=== PATIENT | female | born 1945 | race Caucasian/White ===

== ENCOUNTER 2018-09-06 14:17 | Emergency (ER) | payer MEDICARE, BC, SELFPAY ==
[2018-09-06 14:23] VITALS: BP 181/67; PULSE 92; RESP 18; TEMP 36.9; O2SAT 96
--- NOTE | 2018-09-06 14:51 | DI.CT_ITS ---
SYMPTOM/DIAGNOSIS: FELL, HIT FACE NONCONTRAST HEAD CT: There is a large soft tissue hematoma at the left orbital rim. No underlying skull fracture is seen. The globes appear intact. There is no intracranial hemorrhage, mas or infarct. There are mild patchy areas of low attenuation in the white matter consistent with microvascular disease. IMPRESSION: Soft tissue swelling above the left orbit. No acute abnormality. FACIAL CT: A large area of siomara-orbital soft tissue swelling is again noted. The globes appear intact. There is no evidence of fracture. The sinuses are clear. IMPRESSION: Siomara-orbital soft tissue swelling. No evidence of fracture. CERVICAL SPINE CT: There is no evidence of fracture. Degenerative changes are seen. There is no paraspinal hematoma. The airway appears intact. IMPRESSION: Degenerative changes. No acute abnormality.
[2018-09-06] MEDS: Ibuprofen 800 MG TAB (15:12)
--- NOTE | 2018-09-06 15:59 | ED.GENADUL_ITS ---
Discharge Plan Disposition Patient Disposition: HOME Condition: Good Discharge Details Chief Complaint: Laceration Clinical Impression: Contusion, Abrasion Primary Care Provider: DORIAN CALDERON ED Provider: Fuad Frazier Home Meds and New Rx's Prescriptions: No Action albuterol sulfate 2.5 MG/3 ML solution for nebulization 1 puff Inhalation .Q6 HRS PRNRF: 0 acetaminophen-codeine 1 EACH tablet 1 tab PO PRN PRNRF: 0 acyclovir 400 MG tablet 1 tab PO PRN PRNRF: 0 methocarbamol 750 MG tablet 750 mg PO HS PRNRF: 0 esomeprazole magnesium [Nexium] 40 MG capsule,delayed release(DR/EC) 40 mg PO BID RF: 0 Flovent HFA 120 PUFF HFA aerosol inhaler 4 puff Inhalation BID RF: 0 lorazepam 1 MG tablet 1 mg PO PRN PRNRF: 0 losartan 100 MG tablet 100 mg PO DAILY RF: 0 Flovent HFA 12 GM HFA aerosol inhaler 2 spray NS .QDAY RF: 0 Serevent Diskus 1 EACH blister with device 1 puff Inhalation BID RF: 0 chlorthalidone 25 MG tablet 25 mg PO DAILY RF: 0 albuterol sulfate [Proventil HFA] 90 mcg/actuation Hfa Aerosol Inhaler 2 puff Inhalation PRN PRNRF: 0 ipratropium-albuterol 3 ML solution for nebulization 3 ml Inhalation Q6H PRNQty: 1 RF: 0 Discharge Instructions Instructions: Contusion in Adults (ED), Abrasion (ED) Additional Instructions: Please clean and dress the wounds as we showed you. Please take Tylenol as needed for pain if you notice any worsening of your symptoms, or any new symptoms such as vomiting, diarrhea, fever, chills, shortness of breath, chest pain, numbness, weakness, or fainting , please return immediately to the emergency department for reevaluation. Please follow up with your primary care provider as soon as possible for reassessment and reevaluation. As always, it was a pleasure participating in your medical care today. Referrals: DORIAN CALDERON [Primary Care Provider] - Medical Decision Making This is a pleasant 73-year-old female with past medical history of asthma who presents today for evaluation after a fall. She had a mechanical trip and landed on the left side of her face. Physical exam demonstrates no neurologic deficits, notable contusion and hematoma over the left brow, as well as bruising and contusion over the nasal bridge. She has a small superficial s kin abrasion over the left hand as well. No signs of any laceration requiring suture. No evidence of hyphema, ocular entrapment, change in vision, or other concerning intra-or extracranial red flag. Because of the patient's age and mechanism we did get a CT scan of the head neck and face. Patient's tetanus has been updated. Patient is not on any blood thinners. The areas of concern were cleaned and scrubbed vigorously, all gravel was removed. Patient shows no neurologic deficits and is doing very well at this time. Pain is well controlled. We have instructed her on means of regular wound cleansing and bandage changing for her abrasions. We are currently awaiting CT scan results. If these are negative for any acute fracture I do feel that she be safely discharged home with close follow-up. 4:[address] scan results have returned negative for any acute process or fracture. Tetanus is been updated. Patient will be discharged home with close follow-up. Discussed red flags which return. I have extensively reviewed the treatment plan and discharge instructions with the patient. I have addressed all patient concerns at this time. The patient was made aware of what symptoms to monitor for that would warrant a return to the emergency department. Discussed the plan with the patient, they demonstrate verbal understanding and agreement with our assessment and plan at this time. FINDINGS: Degenerative disc and facet disease most pronounced in the lower cervical spine. No focal subluxation. No acute fracture. Paraspinous soft tissues unremarkable for age. Lung apices within normal limits. IMPRESSION: No evidence of acute bony injury. Dictated and Authenticated by: Demetris Helms MD. FINDINGS: No evidence of acute facial bone fracture. Left siomara-orbital soft tissue swelling. Left globe appears intact. Paranasal sinuses unremarkable. Incidental periodontal disease of the right anterolateral maxilla. IMPRESSION: No evidence of acute bony injury. FINDINGS: No evidence of hemorrhage. No mass effect. No acute intracranial abnormality. Prominent left frontal and periorbital scalp hematoma. No evidence of acute fracture. IMPRESSION: No evidence of acute intracranial process. HPI General Date/Time Provider Initiated Documentation: 09/06/18 14:18 . HPI Narrative: This is a 73-year-old female with a past medical history of asthma and hypertension who presents today for evaluation of a fall. 30 minutes prior to arrival the patient had a mechanical trip no walking into her right a, and fell and hit the left side of her face onto the ground she had no loss of consciousness, did have immediate bleeding, is able to get up independently on her own. She recalls the entire event aside from mild pain over her left brow denies any other significant pain. She denies any vision changes, headache, neck pain, chest pain or shortness of breath. She denies any history of seizure or syncope. She has no other complaints at this time. She is not on any blood thinners. No other modifying factors. Related Data Home Medications Medication Instructions Recorded Confirmed Flovent HFA 2 spray NS .QDAY 10/23/15 09/06/18 acetaminophen-codeine 1 tab PO PRN PRN 10/23/15 09/06/18 acyclovir 1 tab PO PRN PRN 10/23/15 09/06/18 albuterol sulfate 1 puff INHALATION .Q6 HRS PRN 10/23/15 09/06/18 esomeprazole magnesium [Nexium] 40 mg PO BID 10/23/15 09/06/18 fluticasone [Flovent 220MCG] 4 puff INHALATION BID 10/23/15 09/06/18 lorazepam 1 mg PO PRN PRN 10/23/15 09/06/18 losartan 100 mg PO DAILY 10/23/15 09/06/18 methocarbamol 750 mg PO HS PRN 10/23/15 09/06/18 salmeterol [Serevent Diskus] 1 puff INHALATION BID 10/24/15 09/06/18 chlorthalidone 25 mg PO DAILY 02/13/16 09/06/18 ipratropium-albuterol 3 ml INHALATION Q6H PRN #1 pkg 10/19/17 09/06/18 albuterol sulfate [Proventil HFA] 2 puff INHALATION PRN PRN 09/06/18 09/06/18 Previous Rx's Medication Instructions Recorded ipratropium-albuterol 3 ml INHALATION Q6H PRN #1 pkg 10/19/17 Allergies Allergy/AdvReac Type Severity Reaction Status Date / Time diltiazem Allergy Intermediate Unverified 09/06/18 14:26 lisinopril Allergy Mild Unverified 09/06/18 14:26 NSAIDS (Non-Steroidal AdvReac Mild Unverified 09/06/18 14:26 Anti-Inflamma General Stated Complaint: Laceration SALAS: 3 Review of Systems Review of Systems All systems reviewed & are unremarkable except as noted in HPI and below PFSH Social History Smoking and Tabacco status: Never Exam Narrative Exam Narrative: 1.Const: Well-nourished, Well-developed, appearing stated age 2.Eyes: PERRL, no conjunctival injection, and symmetrical lids. 3.ENT: Atraumatic external nose and ears. Moist MM. Neck: Symmetric, trachea midline, No thyromegaly. There is no evidence of raccoon eyes, avila sign, CSF rhinorrhea, mastoid tenderness, cranial crepitus, hemotympanum, exophthalmos, or hyphema. Patient demonstrates intact dentition with no signs of tooth avulsion or fracture, no signs of jaw deformity, no evidence of a LeFort's fracture, with an intact palate, nose and orbital region. There is no evidence of a nasal septal hematoma. No proptosis. Jaw closes symmetrically. Airway is clear. 4.CVS: +S1/S2, No murmurs or gallops. Peripheral pulses 2+ and equal in all extremities. Brisk capillary refill in all extremities. 5.RESP: Unlabored respiratory effort. Clear to auscultation bilaterally. No wheezes rales or rhonchi 6.GI: Soft, Nontender/Nondistended, No hepatosplenomegaly. No guarding or rebound. 7.MSK: Normocephalic/Atraumatic, Extremities w/o deformity or ttp No cyanosis or clubbing, Normal movement of all extremities no midline cervical or thoracic neck pain. Normal range of motion for the neck. No evidence of trauma. 8.Skin: Warm, Dry. Notable bruising and contusion over the left eyebrow, notable swelling in this area. Mild superficial abrasion is present here and on the bridge of the nose. Mild scrape/abrasion over the left hand. No signs of active bleeding. No evidence of retained gravel. No signs of active bleeding or deep laceration requiring suture. 9.Neuro: admitted attorneys II-XII grossly intact. Sensation grossly intact, no focal neurol ogic deficits. 10.Psych: (AAO) x3. Appropriate mood and affect Course Vital Signs Temperature 36.9 C 09/06/18 14:23 Pulse 92 H 09/06/18 14:23 Respiratory Rate 18 09/06/18 14:23 Blood Pressure 181/67 H 09/06/18 14:23 Pulse Oximetry 96 09/06/18 14:23 Temperature 36.9 C 09/06/18 14:23 Pulse 92 H 09/06/18 14:23 Respiratory Rate 18 09/06/18 14:23 Respiratory Effort 09/06/18 14:30 Blood Pressure 181/67 H 09/06/18 14:23 Pulse Oximetry 96 09/06/18 14:23 Pain Level 5 09/06/18 15:12
--- NOTE | 2018-09-06 16:30 | DI.VRAD_ITS ---
EXAM: CT Head Without Contrast EXAM DATE/TIME: 09/06/2018 3:32 PM CLINICAL HISTORY: 73 years old, female; Injury or trauma; Fall; Initial encounter; Blunt trauma (contusions or hematomas); Cheek bone and eyelid and head/scalp; Loss of consciousness; Left; Upper left TECHNIQUE: Axial computed tomography images of the head/brain without contrast. Coronal and sagittal reformatted images were created and reviewed. COMPARISON: No relevant prior studies available. FINDINGS: No evidence of hemorrhage. No mass effect. No acute intracranial abnormality. Prominent left frontal and periorbital scalp hematoma. No evidence of acute fracture. IMPRESSION: No evidence of acute intracranial process. EXAM: CT Maxillofacial Without Contrast EXAM DATE/TIME: 09/06/2018 3:32 PM CLINICAL HISTORY: 73 years old, female; Injury or trauma; Fall; Initial encounter; Blunt trauma (contusions or hematomas); Cheek bone and eyelid and head/scalp; Loss of consciousness; Left; Upper left TECHNIQUE: Axial computed tomography images of the face without intravenous contrast. Coronal and sagittal reformatted images were created and reviewed. COMPARISON: No relevant prior studies available. FINDINGS: No evidence of acute facial bone fracture. Left siomara-orbital soft tissue swelling. Left globe appears intact. Paranasal sinuses unremarkable. Incidental periodontal disease of the right anterolateral maxilla. IMPRESSION: No evidence of acute bony injury. EXAM: CT Cervical Spine Without Contrast EXAM DATE/TIME: 09/06/2018 3:32 PM CLINICAL HISTORY: 73 years old, female; Injury or trauma; Fall; Initial encounter; Blunt trauma (contusions or hematomas); Cheek bone and eyelid and head/scalp; Loss of consciousness; Left; Upper left TECHNIQUE: Axial computed tomography images of the cervical spine without intravenous contrast. Coronal and sagittal reformatted images were created and reviewed. COMPARISON: No relevant prior studies available. FINDINGS: Degenerative disc and facet disease most pronounced in the lower cervical spine. No focal subluxation. No acute fracture. Paraspinous soft tissues unremarkable for age. Lung apices within normal limits. IMPRESSION: No evidence of acute bony injury. Dictated and Authenticated by: Demetris Helms MD. Ordering:TACOS Merida MD
== END 2018-09-06 17:06 | disposition home or self-care (01) ==
LOC: ER 17:05
PROVIDERS: Emergency Provider Student in an Organized Health Care Education/Training Program; PCP Nurse Practitioner Family
DX: S00.12XA Contusion of left eyelid and periocular area, initial encounter (principal); S00.33XA Contusion of nose, initial encounter; S60.512A Abrasion of left hand, initial encounter; W18.30XA Fall on same level, unspecified, initial encounter; I10 Essential (primary) hypertension
CPT/HCPCS: 90471; 99284; 70450; 70486; 72125

== ENCOUNTER 2019-01-12 18:47 | Outpatient (REF) | payer MEDICARE, BC, SELFPAY ==
[2019-01-12 21:17] LABS: HCT 38.1 % (36.0-46.0); HGB 12.5 g/dL (12.0-15.5); Mean Corp. HGB Concentration 32.8 g/dL (32.0-36.0); Mean Corpuscular Hemoglobin 29.6 pg (27.0-33.0); Mean Corpuscular Volume 90.1 fL (80-95); Mean Platelet Volume 12.2 fL (8.0-11.0); Platelet Count 255 x1000/uL (130-400); RBC 4.23 m/cumm (4.00-5.20); RBC Distribution Width 14.9 % (11.7-14.6); White Blood Cell Count 9.22 k/cumm (4.4-10.8)
[2019-01-12 22:09] LABS: Anion Gap 9.9 mmol/L (3-11); BUN 33 mg/dL (7-18); CO2 26.1 mmol/L (21.0-32.0); CREATININE 0.73 mg/dL (0.55-1.02); Calcium 9.6 mg/dL (8.5-10.1); Chloride 103 mmol/L (98-107); Glucose 104 mg/dL (70-100); Potassium 3.5 mmol/L (3.5-5.1); Sodium 139 mmol/L (136-145)
[2019-01-12 23:17] LABS: COMMENT (LAB VIEW ONLY) 133.45 mg/dL; Microalb ug/mg Crea 7.9 ug/mg Cr
== END 2019-01-12 19:07 ==
LOC: NCHCN 18:47
PROVIDERS: PCP Nurse Practitioner Family; Visit Provider Nurse Practitioner Family
DX: E11.9 Type 2 diabetes mellitus without complications (principal); I10 Essential (primary) hypertension; D64.9 Anemia, unspecified
CPT/HCPCS: 80048; 85027; 82043; 82570

== ENCOUNTER 2020-04-25 10:01 | Outpatient (REF) | payer MEDICARE, BC, SELFPAY ==
[2020-04-25 22:12] LABS: COMMENT (LAB VIEW ONLY) 48.67 mg/dL; Microalb ug/mg Crea 11.9 ug/mg Cr
== END 2020-04-25 10:21 ==
LOC: NCHCN 10:01
PROVIDERS: PCP Nurse Practitioner Family; Visit Provider Nurse Practitioner Family
DX: E11.9 Type 2 diabetes mellitus without complications (principal); I10 Essential (primary) hypertension; G89.4 Chronic pain syndrome
CPT/HCPCS: 82043; 82570

== ENCOUNTER 2021-01-08 21:08 | Outpatient (REF) | payer MEDICARE, BC, SELFPAY ==
[2021-01-08 21:45] LABS: Abs Immature Grans 0.05 10^3/uL (0.0-0.06); Absolute Basophil Count 0.06 10^3/uL (0.0-0.2); Absolute Eosinophil Count 0.14 10^3/uL (0.0-0.7); Absolute Lymphocyte Count 2.17 10^3/uL (1.2-3.4); Basophils % 0.5; Eosinophils % 1.3; HCT 40.6 % (36.0-46.0); HGB 13.1 g/dL (11.2-15.7); Immature Grans % 0.4; Lymphocytes % 19.5; MCH 29.4 pg (27.0-33.0); MCHC 32.3 % (32.0-36.0); MCV 91.2 fL (80-95); MPV 13.2 fL (8.0-11.0); Monocytes % 12.6; Neutrophils % 65.7; Nucleated RBC 0 %; RBC 4.45 10^6/uL (3.93-5.22); RDW 14.6 % (11.7-14.6); RDW-SD 48.7 fL; WBC 11.12 10^3/uL (4.4-10.8)
[2021-01-08 21:51] LABS: Bacteria Few HPF (Negative); Epithelial Cells Few HPF (Negative); RBC 0-2 HPF (0-2)
[2021-01-08 21:52] LABS: C & S Indicated? Yes; Casts Negative LPF (Negative); Crystals Negative HPF (Negative); Mucus Negative (Negative)
[2021-01-08 22:00] LABS: Absolute Neutrophil Count 7.31 10^3/uL (1.2-6.7)
[2021-01-09 04:39] LABS: ALT 33 U/L (14-59); AST 30 U/L (15-37); Albumin 3.4 g/dL (3.4-5.0); Alkaline Phosphatase 92 U/L (46-116); BUN 30 mg/dL (7-18); Bilirubin, Total 0.6 mg/dL (0.2-1.0); CREATININE 1.8 mg/dL (0.55-1.02); Calcium 9.3 mg/dL (8.5-10.1); Chloride 99 mmol/L (98-107); Glucose 129 mg/dL (74-106); Potassium 3.1 mmol/L (3.5-5.1); Sodium 138 mmol/L (136-145); Total Protein 7.5 g/dL (6.4-8.2)
== END 2021-01-08 21:09 | disposition home or self-care (01) ==
LOC: LBN 21:08
PROVIDERS: PCP Nurse Practitioner Family; Visit Provider Nurse Practitioner Family
DX: R11.2 Nausea with vomiting, unspecified (principal)
CPT/HCPCS: 80053; 81015; 85025; 87086

== ENCOUNTER 2021-01-12 08:25 | Emergency (ER) | payer MEDICARE, BC, SELFPAY ==
[2021-01-12] VITALS (28 sets, daily range): BP systolic 159–243; BP diastolic 82–134; PULSE 75–98; RESP 11–24; TEMP 36.4; O2SAT 94–100
--- NOTE | 2021-01-12 08:30 | RT.EKG_ITS ---
APPROVED REPORT Exam: Resting ECG Reason for Exam: nausea Patient Location: E HR:87 bpm ECG Measurements Heart Rate 87 AXIS OH 192 P 23 QRSd 123 QRS -40 QT 372 T 84 QTc 448 Conclusion Sinus rhythm...normal P axis, V-rate 60- 99 Left bundle branch block...QRSd>120, broad/notched R
--- NOTE | 2021-01-12 08:45 | DI.CT_ITS ---
Exam(s) CT ABDOMEN PELVIS W EXAM: CT ABDOMEN PELVIS W CLINICAL HISTORY: LLQ pain with radiation to back. TECHNIQUE: Imaging Protocol: Axial computed tomography images with coronal and sagittal reformatted images were created and reviewed CONTRAST MATERIAL: Intravenous: Omnipaque 350 Contrast volume:100 cc Oral: no COMPARISON: CT ABD PELVIS WITH CONTRAST from 11/20/2011 FINDINGS: ABDOMEN: Lung Bases: Minimal atelectasis or scarring at the lung bases. Moderate-sized hiatal hernia. Liver: Normal density. Stable area of nodularity seen adjacent to the posterior border of the liver a t the level of the right kidney. Gallbladder and biliary tract: No radiodense calculus or dilation. Pancreas: Normal density, no abnormal calcifications or inflammatory process. Spleen: Small. Kidneys: Normal size, contour and axis. No radiodense stones or obstructive uropathy. No masses seen. Adrenal glands: No masses seen. Abdominal Aorta: Abdominal portion non-dilated. Atherosclerotic changes. PELVIS: Bladder: Symmetric distention, no gross wall thickening. Bowel: No obstruction or bowel wall thickening. Mild diverticulosis. No evidence of diverticulitis. Status post appendectomy. High-density material in descending and rectosigmoid colon. Peritoneal cavity: No ascites, collection or mesenteric inflammatory response. Bones: Severe degenerative changes. Scoliosis. Jose Elias proximal right femur. Reproductive organs: Within normal limits. Lymph nodes: Unremarkable. Impression: Diverticulosis without evidence of diverticulitis. Hiatal hernia. No acute abnormality. RADIATION DOSE DELIVERED: 1,336.78mGy.cm Total DLP DATA REPOSITORY: All CT scans at this facility are submitted to the National Radiology Data Registry (NRDR) Dose Index Registry (DIR) with the [employer] ([employer]). RADIATION OPTIMIZATION: All CT scans at this facility use at least one of these dose optimization te chniques: automated exposure control; mA and/or kV adjustment per patient size (includes targeted exa ms where dose is matched to clinical indication); or iterative reconstruction.
--- NOTE | 2021-01-12 08:51 | ED.GENADUL_ITS ---
Discharge Plan Disposition Patient Disposition: HOME Condition: Stable Discharge Details Clinical Impression: Abdominal pain, Nausea & vomiting, Hypokalemia, Hypomagnesemia Primary Care Provider: Laura Vasquez ED Provider: Tasha Ma Home Meds and New Rx's Prescriptions: New magnesium gluconate 27.5 mg magne- sium (500 mg) tablet 27.5 mg PO BID Qty: 10 RF: 0 ciprofloxacin HCl [Cipro] 500 mg tablet 500 mg PO BID Qty: 20 RF: 0 metronidazole [Flagyl] 500 mg tablet 500 mg PO TID Qty: 30 RF: 0 metoclopramide HCl [Reglan] 10 mg tablet 10 mg PO Q6H PRNQty: 10 RF: 0 Continued methocarbamol 750 MG tablet 750 mg PO HS PRNRF: 0 losartan 100 MG tablet 100 mg PO DAILY RF: 0 Serevent Diskus 1 EACH blister with device 1 puff Inhalation BID RF: 0 chlorthalidone 25 MG tablet 25 mg PO DAILY RF: 0 albuterol sulfate [Proventil HFA] 90 mcg/actuation Hfa Aerosol Inhaler 3 puff Inhalation Q4H PRNRF: 0 ipratropium-albuterol 3 ML solution for nebulization 3 ml Inhalation Q6H PRNQty: 1 RF: 0 No Action tramadol 50 mg tablet 50 - 100 mg PO TID RF: 0 esomeprazole magnesium [Nexium] 40 mg capsule,delayed release(DR/EC) 40 mg PO BID RF: 0 montelukast 10 mg tablet 10 mg PO DAILY RF: 0 codeine-guaifenesin [Guaiatussin AC] 10-100 mg/5 mL Liquid 5 - 10 ml PO HS PRNRF: 0 Flovent HFA 220 mcg/actuation HFA aerosol inhaler 4 inh INHALATION BID RF: 0 lorazepam 1 mg tablet 1 mg PO BID PRNRF: 0 hydrocodone-chlorpheniramine [Tussionex Pennkinetic ER] 10-8 mg/5 mL Suspension,Extended Rel 12 Hr 5 ml PO HS PRNRF: 0 ondansetron 4 mg tablet,disintegrating 4 mg PO Q6H PRNRF: 0 fluticasone propionate 50 mcg/actuation [place],Suspension 2 spray INTRANASAL DAILY RF: 0 diclofenac sodium [Voltaren Arthritis Pain] 1 % Gel 1 applic TOPICAL BID RF: 0 Hiberix (PF) 10 mcg/0.5 mL Recon Soln See Rx Instructions .ROUTE .COMPLEX RF: 0 guaifenesin 600 mg Tablet Extended Release 12hr 600 mg PO BID PRNRF: 0 potassium chloride 20 mEq Tablet Extended Release 20 meq PO DAILY RF: 0 Narcan 4 mg/actuation [place],Non-Aerosol 1 spray INTRANASAL PRN PRNRF: 0 Discharge Instructions Instructions: Hypokalemia (ED), Acute Nausea and Vomiting (ED), Abdominal Pain (ED), Hypomagnesemia (ED) Additional Instructions: Please follow-up with your primary care physician Please take your potassium daily as prescribed Take your Reglan as needed for nausea and vomiting Take the metronidazole and ciprofloxacin for suspected diverticulitis Recheck with your primary care physician in 48 to 72 hours Return earlier if you are unable to tolerate p.o., if you cannot tolerate your oral potassium or your antibiotics, you must return to the emergency room for possible admission as you have a low potassium and this can be very dangerous Please return immediately with persistent vomiting worsening pain, fever, chills, or with any new or progressing symptoms Discharge Data Discharge Date/Time-TO BE ENTERED AT DEPARTURE: 01/12/21 12:37 Medical Decision Making I did consider diverticulitis and even though CT read per radiologist is negative for acute pathology after my review, given her clinical presentation I initiated Cipro and Flagyl Urinalysis did not show evidence of infectious etiology of symptoms, no evidence of diabetic ketoacidosis Patient does have electrolyte abnormality, hypokalemia, 2.7 without EKG changes consistent with this Hypomagnesemia, 1.6 Received 1 g of IV magnesium, received 20 mEq of IV potassium and 40 mEq of p.o. potassium, patient was able to tolerate p.o., I attempted on numerous episodes throughout this encounter and patient did well I feel confident she will be able to take her prescribed medications at home and we did discuss admission which patient has adamantly declined She is alert, oriented, of decisional capacity, she is feeling symptomatic improvement after IV fentanyl 50 mcg and IV Tylenol CT results were discussed with patient and she expressed understanding She is aware that should she develop persistent nausea that is uncontrolled with her oral medication prescribed, she must return to the emergency room given her electrolyte status Should she develop fever or chills she does states she will return immediately She is ambulatory with steady gait, she will be discharged home via friend as she has received IV fentanyl in the emergency room There is no evidence of surgical pathology on CT scan reviewed by me and radiologist Given low threshold to return should she develop new or worsening complaints I did consider colitis with patient is not having diarrhea therefore I did not obtain stool specimen Recheck in 24 to 48 hours with primary care physician recommended Of note, this patient has not vomited throughout the entirety of this evaluation Medical Records Medical records reviewed: Yes I reviewed the patient's medical records. Lab Data Lab results reviewed: Yes I reviewed the patient's lab results. HPI General Mode of arrival: ambulatory . Date/Time Provider Initiated Documentation: 01/12/21 08:29 . Limitations to Documentation: no limitations . Information obtained by: patient . HPI Narrative: This 75-year-old female with a past medical history of hypertension peripheral edema presents with report of left lower quadrant abdominal pain with radiation to her flank with nausea, vomiting. She denies any fever. She had the pain been constant for the past week. She denies known exacerbating or alleviating factors. Related Data Home Medications Medication Instructions Recorded Confirmed losartan 100 mg PO DAILY 10/23/15 01/12/21 methocarbamol 750 mg PO HS PRN 10/23/15 01/12/21 Serevent Diskus 1 puff INHALATION BID 10/24/15 01/12/21 chlorthalidone 25 mg PO DAILY 02/13/16 01/12/21 ipratropium-albuterol 3 ml INHALATION Q6H PRN #1 pkg 10/19/17 01/12/21 albuterol sulfate [Proventil HFA] 3 puff INHALATION Q4H PRN 09/06/18 01/12/21 ciprofloxacin HCl [Cipro] 500 mg PO BID #20 tab 01/12/21 codeine-guaifenesin [Guaiatussin 5 - 10 ml PO HS PRN 01/12/21 01/12/21 AC] diclofenac sodium [Voltaren 1 applic TOPICAL BID 01/12/21 01/12/21 Arthritis Pain] esomeprazole magnesium [Nexium] 40 mg PO BID 01/12/21 01/12/21 fluticasone propionate 2 spray INTRANASAL DAILY 01/12/21 01/12/21 fluticasone propionate [Flovent 4 inh INHALATION BID 01/12/21 01/12/21 HFA] guaifenesin 600 mg PO BID PRN 01/12/21 01/12/21 haemoph b poly conj-tet tox-PF See Rx Instructions .ROUTE .COMPLEX 01/12/21 01/12/21 [Hiberix (PF)] hydrocodone-chlorpheniramine 5 ml PO HS PRN 01/12/21 01/12/21 [Tussionex Pennkinetic ER] lorazepam 1 mg PO BID PRN 01/12/21 01/12/21 magnesium gluconate 27.5 mg PO BID #10 tab 01/12/21 metoclopramide HCl [Reglan] 10 mg PO Q6H PRN #10 tab 01/12/21 metronidazole [Flagyl] 500 mg PO TID #30 tab 01/12/21 montelukast 10 mg PO DAILY 01/12/21 01/12/21 naloxone [Narcan] 1 spray INTRANASAL PRN PRN 01/12/21 01/12/21 ondansetron 4 mg PO Q6H PRN 01/12/21 01/12/21 potassium chloride 20 meq PO DAILY 01/12/21 01/12/21 tramadol 50 - 100 mg PO TID 01/12/21 01/12/21 Previous Rx's Medication Instructions Recorded ipratropium-albuterol 3 ml INHALATION Q6H PRN #1 pkg 10/19/17 ciprofloxacin HCl [Cipro] 500 mg PO BID #20 tab 01/12/21 magnesium gluconate 27.5 mg PO BID #10 tab 01/12/21 metoclopramide HCl [Reglan] 10 mg PO Q6H PRN #10 tab 01/12/21 metronidazole [Flagyl] 500 mg PO TID #30 tab 01/12/21 Allergies Allergy/AdvReac Type Severity Reaction Status Date / Time diltiazem Allergy Intermediate Unverified 01/12/21 08:34 lisinopril Allergy Mild Unverified 01/12/21 08:34 NSAIDS (Non-Steroidal AdvReac Mild Unverified 01/12/21 08:34 Anti-Inflamma General Stated Complaint: Nausea/Vomit/Diar SALAS: 3 Review of Systems All systems reviewed & are unremarkable except as noted in HPI and below PFSH Social History Smoking/Tobacco Use Status: Never Smoking risk assessment performed?: Yes Alcohol Intake: current Alcohol Intake frequency: a few times a week Drug use: Occasionally Substance use type: marijuana Do you feel safe at home: Yes Do you feel safe in your relationship?: Yes Exam Const General: no acute distress and not in distress HENMT Mouth: oral mucosae normal Throat: uvula midline Eyes Sclera: sclerae normal Pupils: PERRL Resp Effort & Inspection: normal respiratory effort Auscultation: clear to auscultation bilaterally Cardio Rate: regular rate Rhythm: regular rhythm GI Other: Left lower quadrant abdominal pain, no rebound or guarding Skin General skin exam: no rashes or lesions noted Neuro General: patient alert, patient oriented x3 and CN's II-XI intact bilaterally Speech: speech normal Gait: normal gait Extrem Other: No peripheral edema Distal pulses intact Course Vital Signs Vital signs: Vital Signs Temperature 36.4 C L 01/12/21 08:30 Pulse 98 H 01/12/21 08:30 Respiratory Rate 18 01/12/21 08:30 Blood Pressure 243/134 H 01/12/21 08:30 Pulse Oximetry 94 01/12/21 08:30 Temperature 36.4 C L 01/12/21 08:30 Temperature Source Skin 01/12/21 08:30 Pulse 98 H 01/12/21 08:30 Respiratory Rate 18 01/12/21 08:30 Respiratory Effort 01/12/21 08:35 Blood Pressure 243/134 H 01/12/21 08:30 Blood Pressure Position Sitting 01/12/21 08:30 Pulse Oximetry 94 01/12/21 08:30 Oxygen Delivery Method Room Air 01/12/21 08:30 Oxygen Flow Rate 0 01/12/21 08:30 Pain Level 8 01/12/21 08:30 Critical Care Time Critical Care Time Critical Care Time: Yes Total Critical Care Time: 45 Attestation: Patient received IV potassium, IV magnesium, she was maintained on telemetry monitoring She received p.o. 40 mEq of potassium and IV hydration for likely dehydration without gross EKG findings or telemetry findings consistent with hypomagnesemia or hypokalemia
[2021-01-12 08:55] LABS: Abs Immature Grans 0.02 10^3/uL (0.0-0.06); Absolute Basophil Count 0.06 10^3/uL (0.0-0.2); Absolute Lymphocyte Count 2.53 10^3/uL (1.2-3.4); Absolute Monocyte Count 1.25 10^3/uL (0.1-0.8); Absolute Neutrophil Count 5.45 10^3/uL (1.2-6.7); Basophils % 0.6; Eosinophils % 2.1; HCT 40.8 % (36.0-46.0); HGB 13.5 g/dL (11.2-15.7); Immature Grans % 0.2; Lymphocytes % 26.6; MCH 29.7 pg (27.0-33.0); MCHC 33.1 % (32.0-36.0); MCV 89.7 fL (80-95); MPV 11.3 fL (8.0-11.0); Monocytes % 13.1; Neutrophils % 57.4; Nucleated RBC 0 %; Platelet Count 316 10^3/uL (130-400); RBC 4.55 10^6/uL (3.93-5.22); RDW 14.5 % (11.7-14.6); RDW-SD 47.6 fL; WBC 9.51 10^3/uL (4.4-10.8)
[2021-01-12] MEDS: Ondansetron 4 MG/2 ML VIAL IVP (08:58)
[2021-01-12] MEDS: fentaNYL 100 MCG/2 ML VIAL 50 MCG IVP (08:58)
[2021-01-12] MEDS: ACETAMINOPHEN 1,000 MG/100 ML BTL 400 MG IVPB (08:59)
[2021-01-12 09:12] LABS: Bilirubin Negative (Negative); Blood Trace-lysed (Negative); Clarity Clear (Clear); Glucose Negative (Negative); Ketones Trace mg/dL (Negative); Leukocyte Esterase Negative (Negative); Nitrite Negative (Negative); Urobilinogen 0.2 EU/dL (Up TO 0.2); pH 5.5 (5-8)
[2021-01-12 09:21] LABS: Bacteria Few HPF (Negative); C & S Indicated? Yes; Casts Negative LPF (Negative); Crystals Negative HPF (Negative); Epithelial Cells Rare HPF (Negative); Mucus Trace (Negative); WBC 0-2 HPF (0-5)
[2021-01-12 09:24] LABS: ALT 30 U/L (14-59); AST 26 U/L (15-37); Albumin 3.4 g/dL (3.4-5.0); Alkaline Phosphatase 90 U/L (46-116); Anion Gap 13.9 mmol/L (3-11); BUN 19 mg/dL (7-18); Bilirubin, Total 0.6 mg/dL (0.2-1.0); CO2 26.1 mmol/L (21.0-32.0); CREATININE 1.1 mg/dL (0.55-1.02); Calcium 10.8 mg/dL (8.5-10.1); Chloride 102 mmol/L (98-107); Estimated GFR 48.55 (mL/min/1.73m2); Glucose 155 mg/dL (74-106); Lipase 61 U/L (73-393); Sodium 142 mmol/L (136-145); Total Protein 8.3 g/dL (6.4-8.2); Troponin I < 0.05 ng/mL (<0.06)
[2021-01-12 09:25] LABS: Potassium 2.7 mmol/L (3.5-5.1)
[2021-01-12 09:35] LABS: Magnesium 1.6 mg/dL (1.8-2.4)
[2021-01-12] MEDS: Omnipaque 350 MG/ML 100 ML BTL IJ (09:48)
[2021-01-12] MEDS: Normal Saline - Diluent 50 ML VIAL IV (09:49)
[2021-01-12] MEDS: POTASSIUM CHLORIDE 20 MEQ/100 ML BAG 50 MEQ IVPB (10:15)
[2021-01-12] MEDS: MAGNESIUM SULFATE 1 GM/100 ML BAG IVPB (10:28)
[2021-01-12] MEDS: Potassium Chloride 20 MEQ TABCR 40 MEQ PO (10:28)
[2021-01-12] MEDS: Normal Saline 1,000 ML 1000 ML IV (10:29)
[2021-01-12] MEDS: Metoclopramide 10 MG/2 ML VIAL 5 MG IVP (10:50)
[2021-01-12] MEDS: Normal Saline 50 ML (10:51)
== END 2021-01-12 12:37 | disposition home or self-care (01) ==
PROVIDERS: Emergency Provider Physician Assistant; PCP Nurse Practitioner Family
DX: E87.6 Hypokalemia (principal); E83.42 Hypomagnesemia; R10.32 Left lower quadrant pain; R11.2 Nausea with vomiting, unspecified
CPT/HCPCS: 36415; 80053; 83690; 93005; 96361; 96365; 96366; 96368; 96375; 99285; 74177; 81003; 81015; 83735; 84484; 85025; 87086; 93010; 99284; J0131; J2405; J2765; J3010; J3475; J3480; J3490

== ENCOUNTER 2021-01-22 18:42 | Outpatient (REF) | payer MEDICARE, BC, SELFPAY ==
[2021-01-22 21:25] LABS: Hemoglobin A1C 6.8 % (<5.7)
[2021-01-22 21:31] LABS: Anion Gap 9.9 mmol/L (3-11); BUN 15 mg/dL (7-18); CO2 27.1 mmol/L (21.0-32.0); CREATININE 0.8 mg/dL (0.55-1.02); Calcium 9.6 mg/dL (8.5-10.1); Chloride 104 mmol/L (98-107); Glucose 94 mg/dL (74-106); Magnesium 1.6 mg/dL (1.8-2.4); Potassium 3.7 mmol/L (3.5-5.1); Sodium 141 mmol/L (136-145)
== END 2021-01-22 18:43 | disposition home or self-care (01) ==
LOC: NCHCN 18:42
PROVIDERS: PCP Nurse Practitioner Family; Visit Provider Nurse Practitioner Family
DX: E11.9 Type 2 diabetes mellitus without complications (principal); R11.2 Nausea with vomiting, unspecified
CPT/HCPCS: 80048; 83036; 83735

== ENCOUNTER 2021-03-05 19:56 | Outpatient (REF) | payer MEDICARE, BC, SELFPAY ==
[2021-03-05 20:57] LABS: Abs Immature Grans 0.02 10^3/uL (0.0-0.06); Absolute Basophil Count 0.06 10^3/uL (0.0-0.2); Absolute Lymphocyte Count 1.97 10^3/uL (1.2-3.4); Absolute Monocyte Count 0.92 10^3/uL (0.1-0.8); Absolute Neutrophil Count 5.89 10^3/uL (1.2-6.7); Basophils % 0.7; Eosinophils % 1.1; HCT 38.3 % (36.0-46.0); HGB 12.5 g/dL (11.2-15.7); Immature Grans % 0.2; MCH 29.8 pg (27.0-33.0); MCHC 32.6 % (32.0-36.0); MCV 91.2 fL (80-95); MPV 14.1 fL (8.0-11.0); Monocytes % 10.3; Neutrophils % 65.7; Nucleated RBC 0 %; Platelet Count 263 10^3/uL (130-400); RDW 15.2 % (11.7-14.6); RDW-SD 50.6 fL; WBC 8.96 10^3/uL (4.4-10.8)
[2021-03-05 21:10] LABS: ALT 26 U/L (14-59); AST 27 U/L (15-37); Albumin 3.5 g/dL (3.4-5.0); Alkaline Phosphatase 80 U/L (46-116); Anion Gap 10.3 mmol/L (3-11); BUN 21 mg/dL (7-18); Bilirubin, Total 0.5 mg/dL (0.2-1.0); CO2 26.7 mmol/L (21.0-32.0); CREATININE 0.7 mg/dL (0.55-1.02); Calcium 10.3 mg/dL (8.5-10.1); Chloride 101 mmol/L (98-107); Glucose 136 mg/dL (74-106); Lipase 72 U/L (73-393); Potassium 3.7 mmol/L (3.5-5.1); Sodium 138 mmol/L (136-145); TSH 1.34 uIU/mL (0.36-3.74); Total Protein 7.5 g/dL (6.4-8.2)
[2021-03-06 15:59] LABS: Magnesium 1.4 mg/dL (1.7-2.8)
[2021-03-06 17:18] LABS: CEA 3.6 ng/mL (See Note)
== END 2021-03-05 19:57 | disposition home or self-care (01) ==
LOC: NCHCN 19:56
PROVIDERS: PCP Nurse Practitioner Family; Visit Provider Nurse Practitioner Family
DX: K92.1 Melena (principal); R63.4 Abnormal weight loss
CPT/HCPCS: 80053; 83690; 82378; 83735; 84443; 85025

== ENCOUNTER → 2021-03-09 11:17 | Outpatient (BNVA) | payer MEDICARE, BC, SELFPAY | PROVIDERS: PCP Nurse Practitioner Family; Referring Provider Nurse Practitioner Family; Visit Provider Surgery | DX: R63.4 Abnormal weight loss (principal); R11.2 Nausea with vomiting, unspecified; R19.5 Other fecal abnormalities; E11.9 Type 2 diabetes mellitus without complications | CPT/HCPCS: 99202; 99214 ==

== ENCOUNTER 2021-03-16 02:52 | Outpatient (CLI) | payer MEDICARE, BC, SELFPAY ==
[2021-03-16 12:23] LABS: Source Nasal/Nares
[2021-03-16 17:48] LABS: COVID-19 PCR Negative (Negative)
== END 2021-03-16 02:53 | disposition home or self-care (01) ==
LOC: LBO 02:52
PROVIDERS: PCP Nurse Practitioner Family; Visit Provider Surgery
DX: Z20.822 Contact with and (suspected) exposure to COVID-19 (principal); Z01.818 Encounter for other preprocedural examination
CPT/HCPCS: 87635

== ENCOUNTER 2021-03-17 14:44 | Outpatient (CLI) | payer MEDICARE, BC, SELFPAY ==
--- NOTE | 2021-03-17 | DI.RAD_ITS ---
Exam(s) XR KNEE RT 3V AP,LAT,MARIO EXAM: XR KNEE RT 3V AP,LAT,MARIO CLINICAL HISTORY: RIGHT KNEE PAIN. TECHNIQUE: 2D digital imaging was performed. COMPARISON: CR CHEST 2 VIEWS PA,LAT from 11/06/2017 FINDINGS: BONES: No acute fracture is present. No bony destructive lesion is seen. The distal aspect of an intr amedullary wally is seen in the femur. JOINTS: The knee is normally aligned. No joint effusion is seen. The patient has a right total knee r eplacement. No lucencies are seen in or about the orthopedic hardware. SOFT TISSUE: There is swelling of the prepatellar soft tissues. Atherosclerosis. IMPRESSION: 1. No acute fracture or dislocation. 2. Soft tissue swelling of the knee anteriorly. DATA REPOSITORY: RADIATION DOSE DELIVERED:
--- NOTE | 2021-03-17 16:52 | DI.VRAD_ITS ---
PROCEDURE INFORMATION: Exam: XR Right Knee Exam date and time: 03/17/2021 3:07 PM Age: 76 years old Clinical indication: Patient HX: Right knee pain after fall 5 days ago, PT has right knee replacement. Replacement was done in 10+ years ago. Knee is very black and bruised. TECHNIQUE: Imaging protocol: XR Right knee. Views: 3 views. COMPARISON: No relevant prior studies available. FINDINGS: Bones/joints: Total knee arthroplasty. No evidence for acute bony injury. Intramedullary wally bridging the distal femur. Soft tissues: Marked soft tissue swelling anterior and inferior to the patella. Vasculature: Atherosclerotic disease. IMPRESSION: 1. Soft tissue swelling consistent with hematoma. 2. No evidence for acute bony injury. 3. Postsurgical changes as discussed above. Dictated and Authenticated by: Marlee Mena MD. Ordering:LAVERNE Metzger MD
== END 2021-03-17 15:04 ==
PROVIDERS: PCP Nurse Practitioner Family; Visit Provider Physician Assistant Medical
DX: M25.561 Pain in right knee (principal); S80.01XA Contusion of right knee, initial encounter; W19.XXXA Unspecified fall, initial encounter; Z96.651 Presence of right artificial knee joint
CPT/HCPCS: 73562

== ENCOUNTER 2021-03-19 10:50 | Day surgery (SDC) | payer MEDICARE, BC, SELFPAY ==
--- NOTE | 2021-03-19 06:51 | ENDO_ITS ---
Date of service: 03/19/21 Time of Service: 12:12 Endoscopy Report DATE OF PROCEDURE: 03/19/21 PRE-OP DIAGNOSIS: weight loss, nausea and vomiting POST-OP DIAGNOSIS: other (duodenitis with ulcer, gastritis, esophagitis, colorectal polyps, diverticulosis) PROCEDURE: 1. EGD with biopsies 2. Colonoscopy with polypectomy SURGEON: Emilie Aguilar ANESTHESIA TYPE: General:No Airway (Delon Jordan CRNA) ESTIMATED BLOOD LOSS: 5 PATHOLOGY: other (Duodenal ulcer bx, pylorus bx, antrum bx, GE junction bx, ascending polyp, ascending ulcer bx, transverse colon polyp, descending colon polyp, sigmoid colon polyp.) COMPLICATIONS: None DISPOSITION: same day INDICATIONS: Mrs Mccarthy is a very pleasant 76-year-old female who I seen in the office today because of nausea and vomiting, as well as unintentional weight loss. I suspect that she probably had a gastroenteritis when this all started 6 weeks ago. She does seem to be slowly getting better although she has continued early satiety. She also has occult positive stools and has never had a colonoscopy. With the abdominal pain that she had as well as the early satiety I have recommended that we go ahead and do an upper endoscopy as well as a colonoscopy. We reviewed both procedures in detail. Risks and benefits were reviewed. Risks, benefits and complications have been reviewed. Complications include but are not limited to bleeding, pain, perforation, missed small lesion/polyp, sore throat, aspiration and adverse reaction to the medications. Questions were entertained and answered to their satisfaction and they wished to proceed. No guarantees were given or implied. We also reviewed Covid testing prior to the procedure as well as the expectations of not going to large gatherings before her procedure and also for her to be wearing her mask indoors. Proceed with colonoscopy and upper endoscopy under sedation PREP: Miralax/Dulcolax PROCEDURE START TIME: 12:12 PROCEDURE END TIME: 13:01 COLONOSCOPY RETRACTION TIME: 20 minutes FINDINGS: Upper- inflammation of the duodenum, stomach and esophagus with duodenal ulcer Lower- multiple polyps. One was pedunculated and >1 cm in size. sigmoid diverticulosis PROCEDURE DESCRIPTION: After informed consent was obtained the patient was take to the procedure room and placed in a supine position. Monitors were applied and a time out was done. The patients name, date of , procedure type, allergies to medications and metal in their body was reviewed. A bite block was placed and the patient was sedated. Once sedated and comfortable the gastroscope was advanced through the oropharynx which was grossly normal into the esophagus. The proximal and mid- esophagus were normal. In the distal esophagus there was inflammation noted. The scope was advanced into the stomach and through the pylorus into the 3rd portion of the duodenum. The 2nd and 3rd portion of the duodenum was noted to be normal. The first portion of the duodenum was noted to have inflammation and a small ulcer. Biopsies were done. The scope was retracted back into the stomach. There was moderate inflammation noted in the antrum. Biopsies were done to rule out H. pylori. There was a small pyloric ulcer that was biopsied. The scope was retro-flexed. The cardia and fundus were noted to be normal. There was no hiatal hernia noted. The scope was retracted back into the esophagus and biopsies were done of the GE junction to rule out Glez's. The Z line was regular. The GE junction was at 35 cm. While the patient was still sedated they were placed in a left decubitous position. A rectal exam was done. External exam was normal. Internal exam revealed a decreased sphincter tone and no palpable masses. The scope was then introduced and retro-flexed. No internal hemorrhoids, masses or polyps were identified on retroflexion. The scope was then advanced to the ileocecal valve with some difficulty. I was unable to get the scope into the cecum. The prep was adequate. The scope was then slowly retracted over 20 minutes back into the rectum. Polyps were removed with cold forceps in the ascending, transverse and descending colon. There was a 1 cm pedunculated polyp in the sigmoid colon which was removed with a hot snare. There was moderate diverticulosis noted in the sigmoid colon. The scope was removed and the patient was woken up and taken back to Same day surgery in stable condition. The patient tolerated the procedure well and there were no immediate complications. Follow up: 2 weeks in the office
--- NOTE | 2021-03-19 06:52 | W.PM.DSUDISC ---
Discharge Plan Disposition Patient Disposition: HOME Condition: Good Discharge Details Reason For Visit: Desmet/EGD Attending Provider: Emilie Aguilar Primary Care Provider: Laura Vasquez Home Meds and New Rx's Prescriptions: Continued guaifenesin [Mucinex] 600 mg tablet extended release 12hr 600 mg PO Q12H PRNRF: 0 albuterol sulfate [Proventil HFA] 90 mcg/actuation HFA aerosol inhaler 2 puff inhalation Q6H PRNRF: 0 losartan 100 MG tablet 100 mg PO DAILY RF: 0 chlorthalidone 25 MG tablet 25 mg PO DAILY RF: 0 doxycycline hyclate 100 mg Tablet 100 mg PO BID RF: 0 ipratropium-albuterol 3 ML solution for nebulization 3 ml Inhalation Q6H PRNQty: 1 RF: 0 magnesium gluconate 27.5 mg magne- sium (500 mg) tablet 27.5 mg PO BID Qty: 10 RF: 0 metoclopramide HCl [Reglan] 10 mg tablet 10 mg PO Q6H PRNQty: 10 RF: 0 tramadol 50 mg tablet 50 - 100 mg PO TID RF: 0 esomeprazole magnesium [Nexium] 40 mg capsule,delayed release(DR/EC) 40 mg PO BID RF: 0 montelukast 10 mg tablet 10 mg PO DAILY RF: 0 Flovent HFA 220 mcg/actuation HFA aerosol inhaler 4 inh INHALATION BID RF: 0 lorazepam 1 mg tablet 1 mg PO BID PRNRF: 0 hydrocodone-chlorpheniramine 10-8 mg/5 mL Suspension,Extended Rel 12 Hr 5 ml PO HS PRNRF: 0 ondansetron 4 mg tablet,disintegrating 4 mg PO Q6H PRNRF: 0 diclofenac sodium [Voltaren Arthritis Pain] 1 % Gel 1 applic TOPICAL BID RF: 0 Hiberix (PF) 10 mcg/0.5 mL Recon Soln See Rx Instructions .ROUTE .COMPLEX RF: 0 potassium chloride 20 mEq Tablet Extended Release 20 meq PO DAILY RF: 0 Discontinued bisacodyl [Dulcolax (bisacodyl)] 5 mg tablet,delayed release (DR/EC) 5 mg PO ONCE Qty: 4 RF: 0 polyethylene glycol 3350 17 gram powder in packet 255 g PO DAILY Qty: 15 RF: 0 Discharge Instructions Instructions: Diet for Stomach Ulcers and Gastritis (ED), Duodenitis (DC), Gastritis (DC), GERD (Gastroesophageal Reflux Disease) (DC), Colorectal Polyps (DC), Diverticulosis (DC) Additional Instructions: Findings: inflammation in the small bowel, stomach and esophagus ulcers multiple polyps in the large intestine mild diverticulosis Follow up: 2 weeks in the office Please call if you develop: fevers >101.5 Nausea or Vomiting Abdominal pain that is not transient Rectal bleeding that is more then a tbsp A hard abdomen and inability to pass gas DAY SURGERY UNIT POST ENDOSCOPY INSTRUCTIONS Instructions for everyone who is given Anesthesia: For your safety, please do the following for the next 24 Hours: a. Do not drive or operate dangerous equipment b. Do not drink alcohol beverages or use any recreational drugs for the first 24 hours or while taking pain medications. The medications in your body may have a reaction that can be dangerous. c. Do not make any important decisions or sign any important papers 1. Generally there are no restrictions on your activity after a day or so has gone by, but you may feel a bit fatigued for a few days. 2. After you arrive home you may have a light meal and return to a normal diet as you can tolerate it without feeling sick to your stomach. 3. After surgery, you may feel pain or discomfort. This should be only transient, but if it persists please contact your doctor. 4. If there are any questions regarding the findings of your procedure, please feel free to contact your doctor. 6. If you are unable to contact your doctor with a problem, contact the hospital at [phone]. 7. Continue all your regular medications unless directed otherwise. I understand the above instructions and have no questions. Signature of Patient or Responsible Adult Escort Date/Time Name of Responsible Adult Escort Signature of Nurse Date/Time Referrals: Emilie Aguilar MD [ [facility] STAFF PHYSICIAN] - 03/30/21 9:00 am Activity:: Activity as Tolerated Diet:: As Tolerated Discharge Orders Discharge Orders: Discharge Order (Routine); Ordered 03/19/21 Ordered By: Emilie Aguilar
--- NOTE | 2021-03-19 10:58 | W.ANESPRE ---
General Info Date of Service Date Performed: 03/19/21 Height: 5 ft Weight: 84.935 kg Body Mass Index (BMI): 36.6 Surgical Procedure: Operation Date: 03/19/21 12:20 Proposed Procedures Side Surgeon p Colonoscopy/Gastroscopy Emilie Aguilar MD Meds Allergies and Home Medications Allergies Allergy/AdvReac Type Severity Reaction Status Date / Time diltiazem Allergy Intermediate Other (See Unverified 03/16/21 14:50 Comment) lisinopril Allergy Mild Swelling/Ed Unverified 03/16/21 14:50 susi NSAIDS (Non-Steroidal AdvReac Mild Unverified 03/16/21 14:50 Anti-Inflamma Home Medication Medication Instructions Recorded losartan 100 mg PO DAILY 10/23/15 chlorthalidone 25 mg PO DAILY 02/13/16 ipratropium-albuterol 3 ml INHALATION Q6H PRN #1 pkg 10/19/17 diclofenac sodium [Voltaren 1 applic TOPICAL BID 01/12/21 Arthritis Pain] esomeprazole magnesium [Nexium] 40 mg PO BID 01/12/21 fluticasone propionate [Flovent 4 inh INHALATION BID 01/12/21 HFA] haemoph b poly conj-tet tox-PF See Rx Instructions .ROUTE .COMPLEX 01/12/21 [Hiberix (PF)] hydrocodone-chlorpheniramine 5 ml PO HS PRN 01/12/21 [Tussionex Pennkinetic ER] lorazepam 1 mg PO BID PRN 01/12/21 magnesium gluconate 27.5 mg PO BID #10 tab 01/12/21 metoclopramide HCl [Reglan] 10 mg PO Q6H PRN #10 tab 01/12/21 montelukast 10 mg PO DAILY 01/12/21 ondansetron 4 mg PO Q6H PRN 01/12/21 potassium chloride 20 meq PO DAILY 01/12/21 tramadol 50 - 100 mg PO TID 01/12/21 albuterol sulfate 90 mcg/actuation 2 puff INHALATION Q6H PRN 02/26/21 aerosol inhaler guaifenesin 600 mg tablet, 600 mg PO Q12H PRN 02/26/21 extended release 12 hr bisacodyl 5 mg tablet,delayed 5 mg PO ONCE #4 tab 03/09/21 release polyethylene glycol 3350 17 gram 255 g PO DAILY #15 ea 03/09/21 oral powder packet doxycycline hyclate 100 mg PO BID 03/19/21 Current Visit Medications: Current Medications Generic Name Dose Route Start Last Admin Trade Name Zabrina PRN Reason Stop Dose Admin Hyoscyamine Sulfate 0.125 mg 03/19/21 06:53 Hyoscyamine 0.125 Mg Sl/Oral/Chew SL DIRECTED PRN Ringer's Solution 1,000 mls @ 80 mls/hr 03/19/21 06:00 IV 04/15/21 23:59 INFUSION [facility] [place] IV Miscellaneous Supplies 1 each 03/19/21 06:00 Iv Access IV 04/15/21 23:59 DIRECTED KIP Ondansetron HCl 4 mg 03/19/21 06:53 Ondansetron 4 Mg/2 Ml Vial IVP Q4H PRN PRN Nausea / Vomiting Sodium Chloride 0 ml 03/19/21 06:00 Normal Saline Flush 10 Ml Syr IV 04/15/21 23:59 PRN PRN Sodium Chloride 0 ml 03/19/21 06:00 Normal Saline 10 Ml Vial IJ 04/15/21 23:59 DIRECTED PRN Sterile Water 0 ml 03/19/21 06:00 Water,Injection,Sterile 10 Ml Vial IJ 04/15/21 23:59 DIRECTED PRN PFSH Active Problems Active Problems: Problem Status Onset Code Hematest positive stools R19.5 Status post fall Z91.81 Marijuana use F12.90 Weight loss R63.4 Hematochezia K92.1 Early satiety R68.81 Sensory hearing loss, bilateral H90.3 Anxiety F41.9 Abnormal auditory perception H93.299 Hypomagnesemia E83.42 Hypokalemia E87.6 Nausea & vomiting R11.2 Abdominal pain R10.9 Medical History Medical History (Updated 03/19/21 @ 11:19 by Elina Recinos) Abdominal pain Abnormal auditory perception Anxiety Asthma Chronic pain Diverticulitis Early satiety Hematochezia History of femur fracture History of fracture of left ankle Hx of fracture of femur Hypokalemia Hypomagnesemia Marijuana use Nausea & vomiting Sensory hearing loss, bilateral Type 2 diabetes mellitus pt. 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 Tobacco Smoking/Tobacco Use Status: Never Alcohol Alcohol Intake: current Alcohol intake frequency: a few times a week Substance Use Substance use: Occasionally Substance use type: marijuana Vital Signs and Lab Results Vital Signs Most Recent Vital Signs in EMR: Temp Pulse Resp BP Pulse Ox 36.3 C L 104 H 20 143/108 H 98 03/19/21 11:28 03/19/21 11:28 03/19/21 11:03/19/21 11:03/19/21 11:28 Lab Results Blood Type / Crossmatch: No Data to Display Complete Blood Count: White Blood Count 8.96 10^3/uL (4.4-10.8) 03/05/21 11:50 03/05/21 Red Blood Count 4.20 10^6/uL (3.93-5.22) 03/05/21 11:50 03/05/21 Hemoglobin 12.5 g/dL (11.2-15.7) 03/05/21 11:50 03/05/21 Hematocrit 38.3 % (36.0-46.0) 03/05/21 11:50 03/05/21 Platelet Count 263 10^3/uL (130-400) 03/05/21 11:50 03/05/21 Complete Metabolic Panel: Sodium Level 138 mmol/L (136-145) 03/05/21 11:50 03/05/21 Potassium Level 3.7 mmol/L (3.5-5.1) 03/05/21 11:50 03/05/21 Chloride Level 101 mmol/L (98-107) 03/05/21 11:50 03/05/21 Carbon Dioxide Level 26.7 mmol/L (21.0-32.0) 03/05/21 11:50 03/05/21 Blood Urea Nitrogen 21 mg/dL (7-18) H 03/05/21 11:50 03/05/21 Creatinine 0.7 mg/dL (0.55-1.02) 03/05/21 11:50 03/05/21 Estimated GFR/1.73 m2 >= 60.00 (mL/min/1.73m2) 03/05/21 11:50 03/05/21 Magnesium Level 1.4 mg/dL (1.7-2.8) L 03/05/21 11:50 03/05/21 Calcium Level 10.3 mg/dL (8.5-10.1) H 03/05/21 11:50 03/05/21 Albumin 3.5 g/dL (3.4-5.0) 03/05/21 11:50 03/05/21 Glucose Level 136 mg/dL (74-106) H 03/05/21 11:50 03/05/21 Liver Function Panel: Alanine Aminotransferase (ALT/SGPT) 26 U/L (14-59) 03/05/21 11:50 03/05/21 Aspartate Amino Transf (AST/SGOT) 27 U/L (15-37) 03/05/21 11:50 03/05/21 Coagulation Panel: No Data to Display Cardiac Panel: No Data to Display Arterial Blood Gas: No Data to Display Venous Blood Gas: No Data to Display Pancreas Panel: Lipase 72 U/L (73-393) 03/05/21 11:50 03/05/21 Thyroid Panel: Thyroid Stimulating Hormone (TSH) 1.34 uIU/mL (0.36-3.74) 03/05/21 11:50 03/05/21 Infectious Disease: Coronavirus (COVID-19)(PCR) Negative (Negative) 03/16/21 09:34 03/16/21 Coronavirus 2019 Source Nasal/Nares 03/16/21 09:34 03/16/21 Blood Cultures: No Data to Display Toxicology Panel: No Data to Display Imaging and Studies Imaging and Studies EKG Summary: 01/24: Sinus Rhythm, LBBB, Echocardiogram Summary: 2016: Mild LVH, LVEF 60-65%, mild , PAS 38 mmHg. Anesthesia Assessment and Plan Anesthesia History Personal History: No History of Anesthesia Complications Family History: No Family History of Anesthesia Complications Exercise Tolerance Exercise Tolerance: Metabolic Equivalents>4 Cardiac & Pulmonary Exam Cardiac Exam: Normal S1/S2 Heart Sounds Pulmonary Exam: Clear Bilateral Breath Sounds Airway Exam Known Difficult Airway: No Mallampati Class: 2 Mouth Opening: Normal (> 3cm) Thyromental Distance: Less than 3 cm Neck Range of Motion: Limited ROM Neck Circumference: Normal Teeth Condition: Normal Dentition and Removable Dentures/Plates Lower Airway Comments: removable upper. ASA Classification ASA Score: ASA 2 Emergency Case?: No NPO Status NPO Status: NPO Clears >2 hours, Solids >8 hours Anesthesia Plan Resuscitation Status: Full Code Anesthesia Technique: General Anesthesia Airway Planned: Natural Airway Monitors Used: Standard Monitors Preoperative Comments:: 76 yo female for EGD/colo due to weight loss, nausea and vomiting, and heme positive stool. Sig PMHx: anxiety, GERD, HTN (chlorthalidone, losartan), asthma (albut/flovent). Will have her take albuterol prior to start.
[2021-03-19 11:28] VITALS: BP 143/108; PULSE 104; RESP 20; TEMP 36.3; O2SAT 98
[2021-03-19 11:34] VITALS: BMI 36.6
[2021-03-19] MEDS: Lactated Ringers 1,000 ML 80 ML IV (12:06)
--- NOTE | 2021-03-19 12:15 | BOWEL_PTH ---
PATIENT: Raleigh Mccarthy LOC: [facility] U#:[id number] AGE/SX: 76/F ROOM: RE03/19/[address]: Emilie Aguilar MD : [id number] BED: DIS: 03/19/2021 SPEC #: [id number] RECD: 03/19/21 13:36 STATUS: [facility] #: [id number] MILY: 03/19/21 12:[address]: Emilie Aguilar DEPT: Surgical Specimen RECD BY: Tasha Benjamin ENTERED: 03/19/21 13:38 SP TYPE: Bowel OTHR DR: Laura Boateng Tissues: 1 - BIOPSY BOWEL 2 - STOMACH BIOPSY 3 - STOMACH BIOPSY 4 - ESOPHAGUS BIOPSY 5 - BIOPSY BOWEL 6 - BIOPSY BOWEL 7 - BIOPSY BOWEL 8 - BIOPSY BOWEL 9 - BIOPSY BOWEL Procedures: GROSS AND MICRO LEVEL 4 Comments: [id number]
[2021-03-19] MEDS: Endoscopic Tattoo 5 ML SYR IJ (13:02)
[2021-03-19 13:10] VITALS: BP 133/90; PULSE 85; RESP 22; TEMP 36.3; O2SAT 94
[2021-03-19] MEDS: Hyoscyamine 0.125 MG SL/ORAL/CHEW SL (13:21)
[2021-03-19 13:35] VITALS: BP 156/93; PULSE 65; RESP 24; TEMP 36.2; O2SAT 100
--- NOTE | 2021-03-19 13:36 | W.ANESPOSTOP ---
Postoperative Evaluation Date, Time and Location Date Performed: 03/19/21 Time Performed: 13:36 Patient Location: Day Surgery Unit Vital Signs Most Recent Imported Vital Signs: Most Recent Vital Signs Temp Pulse Resp BP Pulse Ox 36.3 C L 85 22 133/90 94 03/19/21 13:10 03/19/21 13:10 03/19/21 13:10 03/19/21 13:10 03/19/21 13:10 Pain Score Most Recent Pain Score: Most Recent Pain Score Pain Level 0 03/19/21 11:28 Assessment Mental Status: Awake (Alert & Oriented to Patient Baseline) Airway and Respiratory Function: Patent airway with normal (patient baseline) respiratory exam Cardiovascular Function: Hemodynamically Stable Hydration Status: Adequately Hydrated Nausea & Vomiting: Active Nausea or Vomiting Present Nausea and Vomiting Management: Nausea and vomiting active, being addressed with medication Pain: Pain is tolerable per patient Peripheral Nerve Block: Patient did not receive a nerve block
[2021-03-19 14:12] VITALS: BP 170/102; PULSE 68; RESP 18; TEMP 36.6; O2SAT 100
[2021-03-19] MEDS: Metoclopramide 10 MG TAB PO (14:46)
[2021-03-19 15:10] VITALS: BP 156/97; PULSE 71; RESP 20; TEMP 36.4; O2SAT 97
== END 2021-03-19 15:32 | disposition home or self-care (01) ==
LOC: SUR 10:51
PROVIDERS: PCP Nurse Practitioner Family; Visit Provider Surgery
PROC: (CPT 45385; principal; 2021-03-19 12:15)
DX: K29.80 Duodenitis without bleeding (principal); K26.9 Duodenal ulcer, unspecified as acute or chronic, without hemorrhage or perforation; K29.70 Gastritis, unspecified, without bleeding; K57.30 Diverticulosis of large intestine without perforation or abscess without bleeding; K31.89 Other diseases of stomach and duodenum; K21.00 Gastro-esophageal reflux disease with esophagitis, without bleeding; D12.4 Benign neoplasm of descending colon; D12.5 Benign neoplasm of sigmoid colon; D12.2 Benign neoplasm of ascending colon; K52.89 Other specified noninfective gastroenteritis and colitis
CPT/HCPCS: 45385; 45380; 43239; 88305; J2001; J2405; J2704; J3490

== ENCOUNTER → 2021-03-30 08:58 | Outpatient (BNVA) | payer MEDICARE, BC, SELFPAY | PROVIDERS: PCP Nurse Practitioner Family; Referring Provider Nurse Practitioner Family; Visit Provider Surgery | DX: Z48.815 Encounter for surgical aftercare following surgery on the digestive system (principal); K29.70 Gastritis, unspecified, without bleeding; K22.70 Barrett's esophagus without dysplasia; D12.6 Benign neoplasm of colon, unspecified | CPT/HCPCS: 99213 ==

== ENCOUNTER 2021-06-05 15:48 | Outpatient (REF) | payer MEDICARE, BC, SELFPAY ==
[2021-06-05 15:17] LABS: Microalb ug/mg Crea 11.4 ug/mg Cr
== END 2021-06-05 15:49 | disposition home or self-care (01) ==
LOC: NCHCN 15:48
PROVIDERS: PCP Nurse Practitioner Family; Visit Provider Nurse Practitioner Family
DX: E11.9 Type 2 diabetes mellitus without complications (principal); I10 Essential (primary) hypertension
CPT/HCPCS: 82043; 82570

== ENCOUNTER 2022-03-22 17:47 | Outpatient (REF) | payer MEDICARE, BC, SELFPAY ==
[2022-03-22 21:38] LABS: HCT 39.7 % (36.0-46.0); HGB 12.6 g/dL (11.2-15.7); MCH 28.6 pg (27.0-33.0); MCHC 31.7 % (32.0-36.0); MCV 90 fL (80-95); RDW 14.7 % (11.7-14.6); RDW-SD 48.7 fL; WBC 8.69 10^3/uL (4.4-10.8)
[2022-03-22 22:00] LABS: Hemoglobin A1C 6.2 % (<5.7)
[2022-03-22 22:09] LABS: ALT 32 U/L (14-59); AST 40 U/L (15-37); Albumin 3.1 g/dL (3.4-5.0); Alkaline Phosphatase 256 U/L (46-116); Anion Gap 10.3 mmol/L (3-11); BUN 14 mg/dL (7-18); Bilirubin, Total 0.6 mg/dL (0.2-1.0); CO2 26.7 mmol/L (21.0-32.0); CREATININE 0.5 mg/dL (0.55-1.02); Calcium 9.7 mg/dL (8.5-10.1); Chloride 100 mmol/L (98-107); Estimated GFR 97.14 (mL/min/1.73m2); Glucose 103 mg/dL (74-106); Magnesium 1.6 mg/dL (1.8-2.4); Sodium 137 mmol/L (136-145); Total Protein 7.8 g/dL (6.4-8.2); Vitamin B12 947 pg/mL (193-986)
[2022-03-22 22:11] LABS: Platelet Count 277 10^3/uL (130-400)
[2022-03-22 22:30] LABS: NT-proBNP 287 pg/mL (<300)
[2022-03-25 13:00] LABS: IgA 282 mg/dL (85-499); Interpretation (See Note); Tissue Transglutaminase IgA <1.2 U/mL (<4.0)
== END 2022-03-22 17:48 | disposition home or self-care (01) ==
LOC: NCHCN 17:47
PROVIDERS: Family Medicine; PCP Nurse Practitioner Family; Visit Provider Nurse Practitioner Family
DX: E11.9 Type 2 diabetes mellitus without complications (principal); R06.02 Shortness of breath; R10.13 Epigastric pain
CPT/HCPCS: 80053; 82784; 83516; 85027; 82607; 83036; 83735; 83880; 84484

== ENCOUNTER 2022-03-23 17:58 | Outpatient (REF) | payer MEDICARE, BC, SELFPAY ==
[2022-03-23 11:52] LABS: Troponin I < 50 ng/L (<or=60)
== END 2022-03-23 17:59 | disposition home or self-care (01) ==
LOC: NCHCN 17:58
PROVIDERS: PCP Nurse Practitioner Family; Visit Provider Family Medicine
DX: R10.13 Epigastric pain (principal); R06.02 Shortness of breath
CPT/HCPCS: 84484

== ENCOUNTER 2022-04-18 15:37 | Outpatient (REF) | payer MEDICARE, BC, SELFPAY ==
[2022-04-18 14:53] LABS: COMMENT (LAB VIEW ONLY) 94.16 mg/dL; Microalb ug/mg Crea 11.6 ug/mg Cr
== END 2022-04-18 15:38 | disposition home or self-care (01) ==
LOC: NCHCN 15:37
PROVIDERS: PCP Nurse Practitioner Family; Visit Provider Nurse Practitioner Family
DX: E11.9 Type 2 diabetes mellitus without complications (principal); I10 Essential (primary) hypertension; K25.9 Gastric ulcer, unspecified as acute or chronic, without hemorrhage or perforation; R53.83 Other fatigue; E83.42 Hypomagnesemia; F41.1 Generalized anxiety disorder
CPT/HCPCS: 82043; 82570

== ENCOUNTER → 2022-06-05 02:52 | Outpatient (CLI) | payer MEDICARE, BC, SELFPAY ==
--- NOTE | 2022-06-05 14:00 | DI.US_ITS ---
APPROVED REPORT EXAM: Comprehensive 2D, Doppler, and color-flow Echocardiogram Patient Location: Out-Patient Auto Adjudication Specialist: Radha Mcclain RDCS (AE) Indications: Abnormal EKG, Aortic stenosis, Evaluate wall motion Other Information Study Quality: Fair. Technically limited study due to body habitus. Conclusion Normal left ventricular wall thickness and chamber size. Estimated ejection fraction is 55%. Wall m otion appears normal Grossly normal right ventricular size and systolic function The atria are normal in size The aortic valve is sclerotic and probably trileaflet. There is mild aortic stenosis. peak gradient is 28, mean 17 mmHg. Calculated aortic valve area is 1.14 cm?? there is no aortic regurgitation Mitral annular calcification with mild regurgitation Normal tricuspid valve with trace regurgitation Estimated right ventricular systolic pressure is 24 mmHg Wall motion Left Ventricle The left ventricle is normal size. The overall left ventricular systolic function appears normal. The re is normal left ventricular wall thickness. There is normal LV segmental wall motion. There is no v entricular septal defect visualized. LVEF is 55%. Right Ventricle Right ventricle is grossly normal in size. Right ventricular systolic function is grossly normal. The RVSP is 24.1 mmHg. Atria Left atrium is mildly dilated. The right atrium size is normal. The interatrial septum is intact with no evidence for an atrial septal defect. Aortic Valve Aortic valve is calcified. Aortic valve is probably trileaflet. Mild aortic stenosis. Peak aortic rex ve gradient is 28.3mmHg. Highest mean aortic valve gradient is 17.1_mmHg. Calculated DIONI by the cont inuity equation is 1.14cm2. No aortic regurgitation is present. Mitral Valve There is mitral annular calcification. No evidence of mitral valve stenosis. Mild mitral regurgitatio n. Tricuspid Valve The tricuspid valve is normal in structure. There is no tricuspid valve stenosis. Trace tricuspid reg urgitation. Pulmonic Valve Pulmonic valve is not well visualized. There is no pulmonic valvular stenosis. There is no pulmonic v alvular regurgitation. Great Vessels The aortic root is normal in size. The ascending aorta is normal in size. Aortic arch is not well vis ualized. IVC is normal in size and collapses >50% with inspiration. Pericardium There is no pericardial effusion. 2D Dimensions Ao Root d 2.34 cm F: 2.7 - 3.3 LV Vol A2C d MOD 92.8 mL LVEF (Merino's) 56.06 % F: 54 - 74 LV Vol A4C d MOD 90.8 mL LV Volume 76.57 mL F: 46 - 106 LA vol/ BSA A4C s A-L 44.3 mL/m2 LV Volume Index 44.00 mL/m2 F: 29 - 61 LA Area A4C s MOD 23.31 cm2 LV Vol Biplane MOD 97.3 mL LV EF A4C MOD 55.4 % LV EF A2C MOD 55.9 % LV EF Biplane MOD 56.1 % SV 54.53 mL SV Index 31.31 mL/m2 M-Mode TAPSE 2.28 cm (M/F) >1.7 LV Diastology MV E' medial 0.072 (>0.07 m/s) E/A Ratio 0.8 LV E/e MED 10.30 (<14) MV E Vmax 0.74 (0.4-1.3 m/s) MV E' lateral 0.085 (>0.1 m/s) MV A Vmax 0.90 (0.4-1.3 m/s) LV E/e LAT 8.70 (<14) MV E/A Ratio 0.78 MV E/E' medial 10.30 MV E/E' lateral 8.72 Aortic Valve LVOT Area 3.13 cm2 AoV Area Vmax 1.14 cm2 LVOT Vmax 0.97 m/s AoV Area/ BSA (Vmax) 0.65 cm2/m2 LVOT Mean Anant. 0.65 m/s DIONI Mean Anant. 1.03 cm2 LVOT Peak Grad 3.7 mmHg DIONI Mean Anant. Index 0.59 cm2/m2 LVOT Mean Grad 2.0 mmHg LVOT VTI 0.234 m LVOT Diam s 1.95 cm AoV Vmax 2.66 m/s Velocity Ratio 0.36 AoV Mean Anant. 1.98 m/s AoV Peak Grad 28.3 mmHg LVOT SV 73.09 mL AoV Mean Grad 17.1 mmHg AoV VTI 0.621 m AoV Area VTI 1.18 cm2 AoV Area/ BSA (VTI) 0.68 cm/m2 Mitral Valve MV DT 192 (160-240 msec) MV PHT 56 msec MV Area PHT 3.95 cm2 MV VTI 0.238 m MV Area VTI 3.07 (4.0-6.0 cm2) Pulmonary Valve PV Vmax 0.99 (0.5-1.5 m/s) RVOT Peak Gr. 2.32 mmHg PV Peak Grad 3.9 mmHg RVOT Mean Gr. 1.05 mmHg PV Mean Grad 2.2 mmHg RVOT VTI 0.174 m PV VTI 0.207 m RVOT Vmax 0.76 m/s Tricuspid Valve TR Peak Grad 21.1 mmHg TR Vmax 2.30 m/s RA Pressure 3.00 mmHg RVSP (TR) 24.1 mmHg
== END ==
PROVIDERS: PCP Nurse Practitioner Family; Visit Provider Nurse Practitioner Family
DX: R94.31 Abnormal electrocardiogram [ECG] [EKG] (principal)
CPT/HCPCS: 93306